=== PATIENT | female | born 1960 | race African-American/Black ===

== ENCOUNTER 2025-01-06 09:12 | Inpatient (IN) | payer OTHER ==
[~2025-01-06] VITALS: Ht 167.6 cm; Wt 127.9 kg
[~2025-01-06 09:12] MED LIST: AMLO-258 PO; ASPI-1450 PO; ATOR20TA PO; FURO20TA5 PO; LOSA-381 PO; METO25XL PO
[2025-01-06 09:52] LABS: BASOPHILS % (AUTO) 0.3 % (0.0-2.0); EOSINOPHILS % (AUTO) 0.1 % (1.0-6.0); HEMATOCRIT 45.5 % (36-46); LYMPHOCYTES # (AUTO) 1.1 K/uL (1.0-4.8); LYMPHOCYTES % (AUTO) 10.6 % (22.0-44.0); MEAN CORPUSCULAR HEMOGLOBIN 22.4 pg (26.0-34.0); MEAN CORPUSCULAR HGB CONC 30.8 G/dL (31.0-37.0); MEAN CORPUSCULAR VOLUME 73 fL (80-100); MONOCYTES # (AUTO) 1.1 K/uL (0.1-1.0); MONOCYTES % (AUTO) 11.2 % (2.0-9.0); NEUTROPHILS # (AUTO) 7.9 K/uL (1.8-7.7); NEUTROPHILS % (AUTO) 77.8 % (40.0-70.0); PLATELET COUNT (AUTO) 166 K/uL (150-450); RED BLOOD CELL COUNT(AUTO) 6.27 MIL/uL (4.00-5.20); RED CELL DISTRIBUTION WIDTH 23.1 % (11.5-14.5); WHITE BLOOD COUNT (AUTO) 10.1 K/uL (4.5-11.0)
[2025-01-06 09:58] LABS: ANION GAP 9 mmol/L (8-16); CALCIUM, TOTAL 9.5 mg/dL (8.8-10.5); CARBON DIOXIDE 27 mmol/L (22-29); CHLORIDE 105 mmol/L (98-107); CREATININE 1.65 mg/dL (0.60-1.30); GLOMERULAR FILTR. RATE CALC 38 mL/min (>60); GLUCOSE,RANDOM 116 mg/dL (70-110); POTASSIUM 4.2 mmol/L (3.5-5.1); SODIUM SERUM 141 mmol/L (136-145); UREA NITROGEN, BLOOD 25 mg/dL (7-18)
[2025-01-06 10:09] LABS: TROPONIN I-HIGH SENSITIVITY 160 ng/L (<51)
[2025-01-06 10:17] LABS: B-TYPE NATRIURETIC PEPTIDE 816 pg/mL (0-100)
[2025-01-06] MEDS: HydrALAZINE HCL 20 MG/ML VIAL IVP ONE ×2 (10:29→12:07)
[2025-01-06] MEDS: FUROSEMIDE 40 MG/4 ML VIAL IVP ONE (10:29)
[2025-01-06 10:31] LABS: RBC MORPHOLOGY COMMENT ABNORMAL RBC MORPH
[2025-01-06] MEDS: HydrALAZINE HCL 25 MG TABLET PO ONE (12:07)
[2025-01-06 13:30] VITALS: PULSE 75; PULSE 86; RESP 35; O2SAT 98
[2025-01-06] MEDS: LORazepam 2 MG/ML VIAL IVP ONE (13:33)
[2025-01-06 14:00] VITALS: PULSE 86; RESP 26; O2SAT 96
[2025-01-06] MEDS ORDERED: BISACODYL 10 MG RECTAL RECTAL SUPPOSITORY PR PRN (14:00)
[2025-01-06] MEDS ORDERED: ACETAMINOPHEN 325 MG TABLET PO PRN (14:00)
[2025-01-06] MEDS ORDERED: MAGNESIUM HYDROXIDE SUSPENSION 30 ML UDCUP PO PRN (14:00)
[2025-01-06] MEDS ORDERED: ALBUTEROL SULFATE 2.5 MG/0.5 ML NEB SOLUTION NEB PRN (14:00)
[2025-01-06] MEDS ORDERED: IPRATROPIUM BROMIDE 0.5 MG/2.5 ML NEB SOLUTION NEB PRN (14:00)
[2025-01-06] MEDS ORDERED: ONDANSETRON HCL 4 MG/2 ML VIAL IVP PRN (14:00)
[2025-01-06 14:29] LABS: ABG BASE EXCESS -2.3 mmol/L (-2.0-3.0); ABG CARBOXYHEMOGLOBIN 0.9 % (0.5-1.5); ABG HCO3 23.2 mmol/L (21.0-28.0); ABG METHEMOGLOBIN 0.7 % (0.0-1.5); ABG OXYGEN CONTENT 21.4 mL/dL (15.0-23.0); ABG OXYGEN SATURATION 99.7 % (94.0-98.0); ABG OXYHEMOGLOBIN 98.1 % (94.0-98.0); ABG PCO2 34 mmHg (32.0-45.0); ABG PH 7.429 (7.350-7.450); ABG TOTAL HEMOGLOBIN 14.7 G/dL (12.0-16.0); ALLEN TEST, BLOOD GAS POS; PO2, ARTERIAL BG 438.6 mmHg (83.0-108.0); SITE, BLOOD GAS RT BRACHIAL; SOURCE, BLOOD GAS ARTERIAL; TEMPERATURE, FAHRENHEIT, BG 97.8 FAHREN (96.0-98.6)
[2025-01-06 14:30] LABS: O2 DEVICE,BLOOD GAS BIPAP (ROOM AIR); SPONTANEOUS VT, BG 851 ml
[2025-01-06 15:00] VITALS: PULSE 88; RESP 29; O2SAT 96
[2025-01-06] MEDS: ALBUTEROL SULFATE 2.5 MG/0.5 ML NEB SOLUTION NEB SCH (15:00)
[2025-01-06] MEDS: IPRATROPIUM BROMIDE 0.5 MG/2.5 ML NEB SOLUTION NEB SCH (15:00)
[2025-01-06] MEDS: BENZONATATE 100 MG CAPSULE PO SCH (15:44)
[2025-01-06] MEDS: HEPARIN SODIUM,PORCINE 5,000 UNITS/ML VIAL SQ SCH (15:48)
[2025-01-06 17:07] VITALS: PULSE 86; RESP 28; O2SAT 97
[2025-01-06 17:11] LABS: TROPONIN I-HIGH SENSITIVITY 179 ng/L (<51)
[2025-01-06 17:13] LABS: D-DIMER 7.98 mg/L FEU (0.00-0.50); PROTHROMBIN TIME 14.2 SEC (9.4-11.6)
[2025-01-06] MEDS: MethylPREDNISolone SOD SUCC 125 MG/2 ML VIAL IVP SCH (17:23)
[2025-01-06] MEDS: HydrALAZINE HCL 20 MG/ML VIAL IVP PRN (18:58)
[2025-01-06 19:10] VITALS: PULSE 95; RESP 26; O2SAT 0
[2025-01-06] MEDS ORDERED: MAA ALBUMIN AGGREGATED TC99M/UD<10MCL ISOTOPE 1 EA INJ INJ ONE (20:50)
[2025-01-06] MEDS: DOCUSATE SODIUM 100 MG CAPSULE PO SCH (21:00)
[2025-01-06] MEDS: LOSARTAN POTASSIUM 25 MG TABLET PO SCH (21:00)
[2025-01-06] MEDS: GuaiFENesin SR 600 MG ER TABLET PO SCH (21:00)
[2025-01-06] MEDS: FUROSEMIDE 20 MG/2 ML VIAL IVP SCH (21:56)
[2025-01-06 22:13] LABS: PH,URINE DRUG SCREEN 5.5 (5.0-8.0)
[2025-01-06 22:20] LABS: ALCOHOL, URINE DRUG SCREEN NEGATIVE (NEGATIVE); AMPHET/METH SCREEN,URINE NEGATIVE (NEGATIVE); BARBITURATE SCREEN, URINE NEGATIVE (NEGATIVE); BENZODIAZEPINES SCREEN,URINE NEGATIVE (NEGATIVE); CANNABINOID SCREEN,URINE NEGATIVE (NEGATIVE); COCAINE SCREEN,URINE NEGATIVE (NEGATIVE); METHADONE SCREEN, URINE NEGATIVE (NEGATIVE); OPIATE SCREEN,URINE NEGATIVE (NEGATIVE); PHENCYCLIDINE SCREEN,URINE NEGATIVE (NEGATIVE)
[2025-01-06 22:45] VITALS: PULSE 87; RESP 22; O2SAT 97
[2025-01-06] MEDS ORDERED: HEPARIN SODIUM,PORCINE 5,000 UNITS/ML VIAL IVP PRN (22:45)
[2025-01-06] MEDS: HEPARIN SODIUM,PORCINE 5,000 UNITS/ML VIAL IVP ONE (23:13)
[2025-01-06] MEDS: HEPARIN SODIUM 25000 UNITS/D5W 250 ML IV PRN (23:16)
[2025-01-06 23:59] LABS: BASOPHILS % (AUTO) 0.7 % (0.0-2.0); EOSINOPHILS % (AUTO) 0 % (1.0-6.0); HEMATOCRIT 44.6 % (36-46); HEMOGLOBIN 13.6 g/dL (12.0-16.0); LYMPHOCYTES # (AUTO) 0.5 K/uL (1.0-4.8); MEAN CORPUSCULAR HEMOGLOBIN 22.1 pg (26.0-34.0); MEAN CORPUSCULAR HGB CONC 30.5 G/dL (31.0-37.0); MEAN CORPUSCULAR VOLUME 73 fL (80-100); MONOCYTES # (AUTO) 0.4 K/uL (0.1-1.0); MONOCYTES % (AUTO) 3.3 % (2.0-9.0); PLATELET COUNT (AUTO) 158 K/uL (150-450); RED BLOOD CELL COUNT(AUTO) 6.14 MIL/uL (4.00-5.20); RED CELL DISTRIBUTION WIDTH 22.3 % (11.5-14.5)
[2025-01-07] VITALS (14 sets, daily range): BP systolic 104–146; BP diastolic 66–109; PULSE 82–151; RESP 14–31; TEMP 98.4–98.5; O2SAT 94–99
[2025-01-07] MEDS: ZOLPIDEM TARTRATE 5 MG TABLET PO PRN (03:18)
[2025-01-07] MEDS: MORPHINE SULFATE 4 MG/ML SYRINGE IVP ONE (03:18)
[2025-01-07 05:07] LABS: BASOPHILS % (AUTO) 0.2 % (0.0-2.0); CALCIUM, TOTAL 9.3 mg/dL (8.8-10.5); CREATININE 1.61 mg/dL (0.60-1.30); EOSINOPHILS % (AUTO) 0 % (1.0-6.0); HEMATOCRIT 44.3 % (36-46); HEMOGLOBIN 13.3 g/dL (12.0-16.0); LYMPHOCYTES # (AUTO) 0.4 K/uL (1.0-4.8); LYMPHOCYTES % (AUTO) 3.6 % (22.0-44.0); MEAN CORPUSCULAR HGB CONC 30.1 G/dL (31.0-37.0); MEAN CORPUSCULAR VOLUME 73 fL (80-100); MONOCYTES # (AUTO) 0.2 K/uL (0.1-1.0); MONOCYTES % (AUTO) 2.2 % (2.0-9.0); NEUTROPHILS # (AUTO) 9.6 K/uL (1.8-7.7); PLATELET COUNT (AUTO) 155 K/uL (150-450); POTASSIUM 4.5 mmol/L (3.5-5.1); RED BLOOD CELL COUNT(AUTO) 6.05 MIL/uL (4.00-5.20); RED CELL DISTRIBUTION WIDTH 22.9 % (11.5-14.5); WHITE BLOOD COUNT (AUTO) 10.3 K/uL (4.5-11.0)
[2025-01-07 06:45] LABS: GLUCOMETER DEV NAME(LOC) ER.7; GLUCOSE,POINT OF CARE 78 MG/DL (70-110)
[2025-01-07] MEDS: ATORVASTATIN CALCIUM 20 MG TABLET PO SCH (10:20)
[2025-01-07] MEDS: ASPIRIN 81 MG CHEWABLE TABLET PO SCH (10:20)
[2025-01-07] MEDS: AmLODIPine BESYLATE 10 MG TABLET PO SCH (10:21)
[2025-01-07] MEDS: METOPROLOL SUCCINATE 25 MG ER TABLET PO SCH (10:21)
[2025-01-07] MEDS: PANTOPRAZOLE SODIUM 40 MG DR TABLET PO SCH (10:21)
[2025-01-07] MEDS: FUROSEMIDE 40 MG/4 ML VIAL IVP SCH (21:22)
[2025-01-08] VITALS (11 sets, daily range): BP systolic 96–160; BP diastolic 64–128; PULSE 84–97; RESP 14–25; TEMP 97.6–98.5; O2SAT 82–99
[2025-01-08 07:19] LABS: BASOPHILS % (AUTO) 0.1 % (0.0-2.0); EOSINOPHILS % (AUTO) 0 % (1.0-6.0); HEMATOCRIT 45.8 % (36-46); HEMOGLOBIN 13.6 g/dL (12.0-16.0); LYMPHOCYTES # (AUTO) 0.3 K/uL (1.0-4.8); LYMPHOCYTES % (AUTO) 2.8 % (22.0-44.0); MEAN CORPUSCULAR HEMOGLOBIN 22.1 pg (26.0-34.0); MEAN CORPUSCULAR HGB CONC 29.8 G/dL (31.0-37.0); MEAN CORPUSCULAR VOLUME 74 fL (80-100); MONOCYTES # (AUTO) 1.1 K/uL (0.1-1.0); MONOCYTES % (AUTO) 9.2 % (2.0-9.0); NEUTROPHILS # (AUTO) 10.8 K/uL (1.8-7.7); PLATELET COUNT (AUTO) 180 K/uL (150-450); RED BLOOD CELL COUNT(AUTO) 6.17 MIL/uL (4.00-5.20); WHITE BLOOD COUNT (AUTO) 12.2 K/uL (4.5-11.0)
[2025-01-08 07:22] LABS: NEUTROPHILS % (AUTO) 87.9 % (40.0-70.0)
[2025-01-08 07:44] LABS: ALBUMIN 3.2 g/dL (3.4-5.0); BILIRUBIN,TOTAL 0.9 mg/dL (0.1-1.0); CALCIUM, TOTAL 9.5 mg/dL (8.8-10.5); CREATININE 1.79 mg/dL (0.60-1.30); POTASSIUM 4.7 mmol/L (3.5-5.1); TOTAL PROTEIN, SERUM 7.8 g/dL (6.4-8.2)
[2025-01-08 09:35] LABS: RBC MORPHOLOGY COMMENT ABNORMAL RBC MORPH
[2025-01-08] MEDS: HEPARIN SODIUM,PORCINE 5,000 UNITS/ML VIAL IVP PRN (21:58)
[2025-01-09] VITALS (7 sets, daily range): BP systolic 131–163; BP diastolic 77–121; PULSE 65–105; RESP 20–37; TEMP 97.7–97.9; O2SAT 90–98
[2025-01-09 04:43] LABS: BASOPHILS % (AUTO) 0.3 % (0.0-2.0); EOSINOPHILS % (AUTO) 0.3 % (1.0-6.0); HEMATOCRIT 40.2 % (36-46); HEMOGLOBIN 12.3 g/dL (12.0-16.0); LYMPHOCYTES # (AUTO) 0.4 K/uL (1.0-4.8); LYMPHOCYTES % (AUTO) 2.4 % (22.0-44.0); MEAN CORPUSCULAR HEMOGLOBIN 22.2 pg (26.0-34.0); MEAN CORPUSCULAR HGB CONC 30.6 G/dL (31.0-37.0); MEAN CORPUSCULAR VOLUME 72 fL (80-100); MONOCYTES # (AUTO) 0.9 K/uL (0.1-1.0); MONOCYTES % (AUTO) 5.9 % (2.0-9.0); NEUTROPHILS # (AUTO) 14.2 K/uL (1.8-7.7); PLATELET COUNT (AUTO) 161 K/uL (150-450); RED BLOOD CELL COUNT(AUTO) 5.55 MIL/uL (4.00-5.20); RED CELL DISTRIBUTION WIDTH 21.5 % (11.5-14.5); WHITE BLOOD COUNT (AUTO) 15.6 K/uL (4.5-11.0)
[2025-01-09 04:45] LABS: NEUTROPHILS % (AUTO) 91.1 % (40.0-70.0)
[2025-01-09 05:00] LABS: CALCIUM, TOTAL 9.4 mg/dL (8.8-10.5); CREATININE 1.6 mg/dL (0.60-1.30); POTASSIUM 4.4 mmol/L (3.5-5.1)
[2025-01-09 05:30] LABS: RBC MORPHOLOGY COMMENT ABNORMAL RBC MORPH
[2025-01-09] MEDS ORDERED: MIDAZOLAM HCL 2 MG/2 ML VIAL ONE (08:18)
[2025-01-09] MEDS ORDERED: FentaNYL CITRATE PF 100 MCG/2 ML VIAL ONE (08:18)
[2025-01-09] MEDS: AMIODARONE HCL 150 MG in DEXTROSE 5%-WATER 97 ML IV ONE (11:30)
[2025-01-09] MEDS: AMIODARONE HCL 360 MG in DEXTROSE 5%-WATER 242.8 ML IV ONE (12:17)
[2025-01-09] MEDS: AMIODARONE HCL 540 MG in DEXTROSE 5%-WATER 239.2 ML IV ONE (17:01)
[2025-01-10] VITALS (8 sets, daily range): BP systolic 123–145; BP diastolic 74–92; PULSE 63–71; RESP 18–23; TEMP 97.1–98.1; O2SAT 95–98
[2025-01-10 07:07] LABS: BASOPHILS % (AUTO) 0.1 % (0.0-2.0); EOSINOPHILS % (AUTO) 0 % (1.0-6.0); HEMATOCRIT 42.2 % (36-46); HEMOGLOBIN 12.9 g/dL (12.0-16.0); LYMPHOCYTES # (AUTO) 0.4 K/uL (1.0-4.8); LYMPHOCYTES % (AUTO) 2.6 % (22.0-44.0); MEAN CORPUSCULAR HEMOGLOBIN 22.2 pg (26.0-34.0); MEAN CORPUSCULAR HGB CONC 30.5 G/dL (31.0-37.0); MEAN CORPUSCULAR VOLUME 73 fL (80-100); MONOCYTES # (AUTO) 0.9 K/uL (0.1-1.0); MONOCYTES % (AUTO) 6.4 % (2.0-9.0); NEUTROPHILS # (AUTO) 12.9 K/uL (1.8-7.7); PLATELET COUNT (AUTO) 158 K/uL (150-450); RED BLOOD CELL COUNT(AUTO) 5.78 MIL/uL (4.00-5.20); RED CELL DISTRIBUTION WIDTH 21.2 % (11.5-14.5); WHITE BLOOD COUNT (AUTO) 14.2 K/uL (4.5-11.0)
[2025-01-10 07:14] LABS: NEUTROPHILS % (AUTO) 90.9 % (40.0-70.0)
[2025-01-10 08:11] LABS: RBC MORPHOLOGY COMMENT ABNORMAL RBC MORPH
[2025-01-10 09:33] LABS: CALCIUM, TOTAL 9.5 mg/dL (8.8-10.5); CREATININE 1.46 mg/dL (0.60-1.30); POTASSIUM 5.3 mmol/L (3.5-5.1)
[2025-01-10] MEDS ORDERED: AMIODARONE HCL 750 MG in DEXTROSE 5%-WATER 485 ML IV SCH (11:00)
[2025-01-10] MEDS: AMIODARONE HCL 200 MG TABLET PO SCH (11:10)
[2025-01-10] MEDS ORDERED: SODIUM CHLORIDE 3% 15 ML NEB SOLUTION NEB ONE (20:15)
[2025-01-11] VITALS (12 sets, daily range): BP systolic 128–152; BP diastolic 63–93; PULSE 63–96; RESP 16–25; TEMP 97.5–98; O2SAT 92–99
[2025-01-11 04:00] LABS: ALBUMIN 2.9 g/dL (3.4-5.0); BILIRUBIN,TOTAL 0.6 mg/dL (0.1-1.0); CALCIUM, TOTAL 9.3 mg/dL (8.8-10.5); CREATININE 1.66 mg/dL (0.60-1.30); POTASSIUM 4.2 mmol/L (3.5-5.1)
[2025-01-11] MEDS ORDERED: LACTULOSE 20 GM/30 ML SOLUTION UDCUP PO PRN (11:00)
[2025-01-11] MEDS: APIXABAN 5 MG TABLET PO SCH (20:42)
[2025-01-11] MEDS: MethylPREDNISolone SOD SUCC 40 MG/ML VIAL IVP SCH (21:04)
[2025-01-12] VITALS (14 sets, daily range): BP systolic 128–147; BP diastolic 76–96; PULSE 62–88; RESP 16–22; TEMP 97.4–97.8; O2SAT 93–98
[2025-01-12 06:33] LABS: BASOPHILS % (AUTO) 0.2 % (0.0-2.0); EOSINOPHILS % (AUTO) 0 % (1.0-6.0); HEMATOCRIT 34.8 % (36-46); HEMOGLOBIN 10.7 g/dL (12.0-16.0); LYMPHOCYTES # (AUTO) 0.2 K/uL (1.0-4.8); LYMPHOCYTES % (AUTO) 1.1 % (22.0-44.0); MEAN CORPUSCULAR HGB CONC 30.8 G/dL (31.0-37.0); MEAN CORPUSCULAR VOLUME 72 fL (80-100); MONOCYTES # (AUTO) 1.1 K/uL (0.1-1.0); MONOCYTES % (AUTO) 8.1 % (2.0-9.0); NEUTROPHILS # (AUTO) 12.3 K/uL (1.8-7.7); PLATELET COUNT (AUTO) 140 K/uL (150-450); RED BLOOD CELL COUNT(AUTO) 4.86 MIL/uL (4.00-5.20); RED CELL DISTRIBUTION WIDTH 21.2 % (11.5-14.5); WHITE BLOOD COUNT (AUTO) 13.6 K/uL (4.5-11.0)
[2025-01-12 06:38] LABS: CALCIUM, TOTAL 9.3 mg/dL (8.8-10.5); CREATININE 1.37 mg/dL (0.60-1.30); POTASSIUM 4.6 mmol/L (3.5-5.1)
[2025-01-12 06:51] LABS: NEUTROPHILS % (AUTO) 90.6 % (40.0-70.0)
[2025-01-13] VITALS (12 sets, daily range): BP systolic 124–158; BP diastolic 66–96; PULSE 66–82; RESP 16–20; TEMP 97.2–98.3; O2SAT 95–99
[2025-01-13 07:45] LABS: CALCIUM, TOTAL 9.5 mg/dL (8.8-10.5); CREATININE 1.34 mg/dL (0.60-1.30); POTASSIUM 4.6 mmol/L (3.5-5.1)
[2025-01-13 08:00] LABS: EOSINOPHILS % (AUTO) 0 % (1.0-6.0); HEMATOCRIT 37.3 % (36-46); HEMOGLOBIN 11.5 g/dL (12.0-16.0); LYMPHOCYTES # (AUTO) 0.2 K/uL (1.0-4.8); LYMPHOCYTES % (AUTO) 1.5 % (22.0-44.0); MEAN CORPUSCULAR HEMOGLOBIN 22.3 pg (26.0-34.0); MEAN CORPUSCULAR HGB CONC 30.9 G/dL (31.0-37.0); MEAN CORPUSCULAR VOLUME 72 fL (80-100); MONOCYTES % (AUTO) 6.4 % (2.0-9.0); NEUTROPHILS # (AUTO) 14.1 K/uL (1.8-7.7); PLATELET COUNT (AUTO) 150 K/uL (150-450); RED BLOOD CELL COUNT(AUTO) 5.18 MIL/uL (4.00-5.20); WHITE BLOOD COUNT (AUTO) 15.4 K/uL (4.5-11.0)
[2025-01-13 08:03] LABS: NEUTROPHILS % (AUTO) 92.1 % (40.0-70.0)
[2025-01-14] VITALS (9 sets, daily range): BP systolic 136–159; BP diastolic 70–88; PULSE 64–84; RESP 17–22; TEMP 97.3–97.9; O2SAT 94–99
[2025-01-14] MEDS: PredniSONE 20 MG TABLET PO SCH (10:30)
[2025-01-14] MEDS ORDERED: AMIO200T68 PO (11:04)
[2025-01-14] MEDS ORDERED: APIX5TAB PO (11:04)
[2025-01-14] MEDS ORDERED: FURO40TA6 PO (11:05)
[2025-01-14 13:48] LABS: BASOPHILS % (AUTO) 0.3 % (0.0-2.0); EOSINOPHILS % (AUTO) 0 % (1.0-6.0); HEMATOCRIT 36.5 % (36-46); LYMPHOCYTES # (AUTO) 0.2 K/uL (1.0-4.8); LYMPHOCYTES % (AUTO) 1.1 % (22.0-44.0); MEAN CORPUSCULAR HEMOGLOBIN 21.4 pg (26.0-34.0); MEAN CORPUSCULAR VOLUME 71 fL (80-100); MONOCYTES # (AUTO) 1.3 K/uL (0.1-1.0); MONOCYTES % (AUTO) 6.7 % (2.0-9.0); NEUTROPHILS # (AUTO) 18.1 K/uL (1.8-7.7); PLATELET COUNT (AUTO) 168 K/uL (150-450); RED BLOOD CELL COUNT(AUTO) 5.11 MIL/uL (4.00-5.20); RED CELL DISTRIBUTION WIDTH 20.4 % (11.5-14.5); WHITE BLOOD COUNT (AUTO) 19.7 K/uL (4.5-11.0)
[2025-01-14 13:53] LABS: NEUTROPHILS % (AUTO) 91.9 % (40.0-70.0); RBC MORPHOLOGY COMMENT ABNORMAL RBC MORPH
[2025-01-14 14:01] LABS: CALCIUM, TOTAL 9.2 mg/dL (8.8-10.5); CREATININE 1.5 mg/dL (0.60-1.30); POTASSIUM 4.5 mmol/L (3.5-5.1)
[2025-01-14] MEDS ORDERED: FUROSEMIDE 40 MG TABLET PO SCH (21:00)
[2025-01-15] MEDS ORDERED: AMIODARONE HCL 200 MG TABLET PO SCH (08:00)
== END 2025-01-14 19:25 | DRG 133 ==
LOC: EMS 09:15 → EDH 13:17 → ICU 01-07 12:00 → 5S 01-09 18:27
PROVIDERS: ADMIT Internal Medicine; ATTEND Internal Medicine
PROC: 5A1935Z Respiratory Ventilation, Less than 24 Consecutive Hours (ICD-10-PCS; principal; 2025-01-06)
PROC: 0BH17EZ Insertion of Endotracheal Airway into Trachea, Via Natural or Artificial Opening (ICD-10-PCS; 2025-01-06)
PROC: 5A09357 Assistance with Respiratory Ventilation, Less than 24 Consecutive Hours, Continuous Positive Airway Pressure (ICD-10-PCS; 2025-01-06)
PROC: 5A1935Z Respiratory Ventilation, Less than 24 Consecutive Hours (ICD-10-PCS; 2025-01-07)
PROC: 5A09357 Assistance with Respiratory Ventilation, Less than 24 Consecutive Hours, Continuous Positive Airway Pressure (ICD-10-PCS; 2025-01-07)
PROC: 05HD33Z Insertion of Infusion Device into Right Cephalic Vein, Percutaneous Approach (ICD-10-PCS; 2025-01-12)
DX: J96.01 Acute respiratory failure with hypoxia (principal); R65.11 Systemic inflammatory response syndrome (SIRS) of non-infectious origin with acute organ dysfunction; I21.4 Non-ST elevation (NSTEMI) myocardial infarction; I50.33 Acute on chronic diastolic (congestive) heart failure; I27.20 Pulmonary hypertension, unspecified; I82.431 Acute embolism and thrombosis of right popliteal vein; I13.0 Hypertensive heart and chronic kidney disease with heart failure and stage 1 through stage 4 chronic kidney disease, or unspecified chronic kidney disease; I42.9 Cardiomyopathy, unspecified; I48.92 Unspecified atrial flutter; I48.91 Unspecified atrial fibrillation; J44.9 Chronic obstructive pulmonary disease, unspecified; I16.0 Hypertensive urgency; E66.01 Morbid (severe) obesity due to excess calories; E78.5 Hyperlipidemia, unspecified; N18.30 Chronic kidney disease, stage 3 unspecified; F17.200 Nicotine dependence, unspecified, uncomplicated; I08.1 Rheumatic disorders of both mitral and tricuspid valves; K44.9 Diaphragmatic hernia without obstruction or gangrene; K76.0 Fatty (change of) liver, not elsewhere classified; R04.0 Epistaxis; Z71.6 Tobacco abuse counseling; Z79.01 Long term (current) use of anticoagulants; Z79.82 Long term (current) use of aspirin; Z88.5 Allergy status to narcotic agent; Z90.49 Acquired absence of other specified parts of digestive tract; Z79.899 Other long term (current) drug therapy; Z68.42 Body mass index [BMI] 45.0-49.9, adult
CPT/HCPCS: 36245; 36569; 36600; 70450; 71045; 71250; 76937; 78582; 80048; 80053; 80307; 82805; 82962; 83036; 83880; 84484; 85025; 85379; 85610; 85730; 87081; 93005; 93306; 93970; 94640; 94660; 97110; 97116; 97163; 97167; 97530; 97535; 99291; A9540; G0378; J0282; J0360; J1644; J1940; J2060; J2250; J2270; J2405; J2919; J3010; J7060; 36415-L1; 36415-TC; J7613

== ENCOUNTER 2025-09-27 19:23 | Emergency (ER) | payer OTHER ==
[~2025-09-27] VITALS: Ht 170.2 cm; Wt 100.0 kg
[2025-09-27 19:23] VITALS: TEMP 98.2
[~2025-09-27 19:23] MED LIST changes: +ACET-2247 PO; +AMIO200T73 PO; +AMLO10TA55 PO; +APIX5TAB PO; -ATOR20TA PO; +ATOR20TA65 PO; +CHOL10002 PO; +DOCU100C33 PO; -FURO20TA5 PO; -LOSA-381 PO; +LOSA-382 PO; -METO25XL PO; +MIRT-92 PO
[2025-09-27 22:18] VITALS: BP 178/110; PULSE 78; RESP 20; O2SAT 100
[2025-09-27] MEDS ORDERED: PHEN57OI23 RC (22:26)
[2025-09-27] MEDS: ACETAMINOPHEN 500 MG TABLET PO ONE (22:40)
== END 2025-09-27 23:52 | disposition home or self-care (01) ==
LOC: EMS 19:23
DX: K64.9 Unspecified hemorrhoids (principal); I13.0 Hypertensive heart and chronic kidney disease with heart failure and stage 1 through stage 4 chronic kidney disease, or unspecified chronic kidney disease; N18.9 Chronic kidney disease, unspecified; Z79.01 Long term (current) use of anticoagulants; Z79.82 Long term (current) use of aspirin; Z79.899 Other long term (current) drug therapy; Z87.19 Personal history of other diseases of the digestive system; Z88.5 Allergy status to narcotic agent
CPT/HCPCS: 99283

== ENCOUNTER 2025-10-22 16:39 | Emergency (ER) | payer OTHER ==
[~2025-10-22] VITALS: Ht 167.6 cm; Wt 131.0 kg
[~2025-10-22 16:39] MED LIST changes: +PHEN57OI23 RC
[2025-10-22 16:44] VITALS: TEMP 98.6
[2025-10-22] MEDS: LIDOCAINE 5% TRANSDERMAL PATCH TD ONE (21:05)
[2025-10-22 21:43] LABS: CALCIUM, TOTAL 9.2 mg/dL (8.8-10.5); CREATININE 1.61 mg/dL (0.60-1.30); GLOMERULAR FILTR. RATE CALC 39.0 mL/min (>60); GLUCOSE,RANDOM 92.0 mg/dL (70-110); SODIUM SERUM 140.0 mmol/L (136-145); UREA NITROGEN, BLOOD 30.0 mg/dL (7-18)
[2025-10-22 22:08] LABS: PLATELET COUNT (AUTO) 217 K/uL (150-450); RED BLOOD CELL COUNT(AUTO) 5.55 MIL/uL (4.00-5.20); RED CELL DISTRIBUTION WIDTH 19.4 % (11.5-14.5); WHITE BLOOD COUNT (AUTO) 9.4 K/uL (4.5-11.0)
[2025-10-22 22:20] LABS: RBC MORPHOLOGY COMMENT ABNORMAL RBC MORPH
[2025-10-22] MEDS ORDERED: POLY119P3 PO (23:20)
[2025-10-22] MEDS ORDERED: LIDO-57 TP (23:20)
[2025-10-22] MEDS ORDERED: CYCL-448 PO (23:20)
[2025-10-23] VITALS: BP 123/75; PULSE 82; RESP 16; O2SAT 96
[2025-10-23 00:31] LABS: APPEARANCE,URINE CLEAR (CLEAR); GLUCOSE, URINE (UA) NEGATIVE (NEGATIVE); LEUKOCYTE ESTERASE ,URINE NEGATIVE (NEGATIVE); NITRATE,URINE NEGATIVE (NEGATIVE); OCCULT BLOOD,URINE NEGATIVE (NEGATIVE); SPECIFIC GRAVITIY, URINE 1.022 (1.003-1.030)
== END 2025-10-23 01:10 | disposition home or self-care (01) ==
LOC: EMS 16:39
DX: K59.00 Constipation, unspecified (principal); M54.50 Low back pain, unspecified; I11.0 Hypertensive heart disease with heart failure; I48.91 Unspecified atrial fibrillation; Z79.01 Long term (current) use of anticoagulants; Z79.82 Long term (current) use of aspirin; Z79.899 Other long term (current) drug therapy; Z88.5 Allergy status to narcotic agent
CPT/HCPCS: 72100; 80048; 81003; 85025; 99284